=== PATIENT | female | born 1970 | race Caucasian/White ===

== ENCOUNTER → 2018-11-03 | Outpatient (CLI) | payer OTHER ==
[2018-11-04 14:07] LABS: HPV 16 Negative (Negative); HPV 18 Negative (Negative); HPV OTHER HR TYPES Negative (Negative)
== END | disposition home or self-care (01) ==
LOC: LAB 11:53 → LAB SHORT 11:53
PROVIDERS: Nurse Practitioner Women's Health
DX: Z12.4 Encounter for screening for malignant neoplasm of cervix (principal); Z91.89 Other specified personal risk factors, not elsewhere classified
CPT/HCPCS: 87624; G0123

== ENCOUNTER 2020-07-12 08:39 | Observation (INO) | payer OTHER ==
[~2020-07-12] VITALS: Ht 165.1 cm; Wt 60.9 kg
[2020-07-12 09:09] LABS: BASOPHILS ABSOLUTE AUTO 0.08 K/mm3 (0.00-0.23); BASOPHILS PERCENT AUTO 1 % (0-2); EOSINOPHILS ABSOLUTE AUTO 0.22 K/mm3 (0.00-0.68); EOSINOPHILS PERCENT AUTO 2 % (0-6); Hematocrit 41.9 % (33.0-51.0); Hemoglobin 13.9 g/dL (11.5-16.0); IMMATURE GRAN ABSOLUTE AUTO 0.03 K/mm3 (0.00-0.10); IMMATURE GRAN PERCENT AUTO 0 % (0-1); LYMPHOCYTES ABSOLUTE AUTO 1.63 K/mm3 (0.84-5.20); LYMPHOCYTES PERCENT AUTO 14 % (21-46); MONOCYTES ABSOLUTE AUTO 0.92 K/mm3 (0.16-1.47); MONOCYTES PERCENT AUTO 8 % (4-13); Mean Corpuscular HGB 31.1 pg (26.0-34.0); Mean Corpuscular HGB Conc 33.2 g/dL (31.5-36.5); Mean Corpuscular Volume 94 fL (80-100); Mean Platelet Volume 9.4 fL (9.1-12.4); NEUTROPHILS ABSOLUTE AUTO 8.45 K/mm3 (1.96-9.15); NEUTROPHILS PERCENT AUTO 75 % (41-73); Platelet Count 261 K/mm3 (150-400); Red Blood Cell Count 4.47 M/mm3 (3.80-5.20); White Blood Cell Count 11.33 K/mm3 (4.00-11.30)
[2020-07-12 09:31] LABS: Alanine Aminotransfer (ALT/SGP 17 U/L (12-78); Albumin, Blood 3.4 g/dL (3.4-5.0); Albumin/Globulin Ratio 0.8 (0.8-1.8); Alk Phos 38 U/L (50-136); Anion Gap 7 mmol/L (6-16); Aspartate Aminotrans (AST/SGOT 17 U/L (12-37); Bilirubin, Total 0.7 mg/dL (0.1-1.0); Blood Urea Nitrogen 12 mg/dL (8-24); Bun/Creatinine Ratio 16.9 (12.0-20.0); CO2, Blood 28 mmol/L (21-32); Calcium, Blood 8.6 mg/dL (8.5-10.1); Chloride, Blood 103 mmol/L (98-108); Creatinine, Blood 0.71 mg/dL (0.40-1.00); Globulin, Blood 4.1 g/dL (2.2-4.0); Glomerular Filtration Rate >60 (60-); Glucose, Blood 80 mg/dL (70-99); Potassium, Blood 3.7 mmol/L (3.5-5.5); Sodium, Blood 138 mmol/L (136-145); Total Protein, Blood 7.5 g/dL (6.4-8.2)
[2020-07-12 10:33] LABS: Source, Urine Clean Catch
[2020-07-12 10:54] LABS: Bilirubin, Urine Neg (Neg); Blood, Urine 1+ (Neg); Glucose Qualitative, Urine Neg (Neg); Ketones, Urine 4+ (Neg); Leukocyte Esterase, Urine Neg (Neg); Nitrite, Urine Neg (Neg); Protein, Urine Neg (Neg); Urobilinogen, Urine NORM (Normal)
[2020-07-12 11:33] LABS: Appearance, Urine Clear (Clear); Color, Urine Yellow (P-Yellow)
[2020-07-12 11:34] LABS: Bacteria Not Seen /hpf; Red Blood Cells, Urine 0-2 /hpf (0-2); Squamous Epithelial Cells Few /hpf (Few); White Blood Cells, Urine Not Seen /hpf (0-5)
[2020-07-12] MEDS ORDERED: LO LOESTRIN FE PO (11:51)
[2020-07-12 12:13] LABS: Influenza A, PCR NEGATIVE (NEGATIVE); Influenza B, PCR NEGATIVE (NEGATIVE); Resp Syncytial Virus, PCR NEGATIVE (NEGATIVE); SARS-Cov-2 (COVID-19) PCR, MMC NEGATIVE (NEGATIVE)
--- NOTE | 2020-07-12 13:45 | NUR ---
PT TO OR
--- NOTE | 2020-07-12 14:04 | NUR ---
PT TO SDS FROM ROOM 209. PT REPORTS NPO FOR DAYS. SITE PREPPED. LS CLEAR T/O. IV INTACT FROM ED. URINE PREG NEGATIVE.
--- NOTE | 2020-07-12 18:29 | NUR ---
PT ARRIVED BACK TO UNIT FROM PACU TRANSFERRED W/MINIMAL ASSIST TO BED FROM [facility]. DENIES PAIN, N/V OR SOB. HAS "TICKLE" IN THROAT, TAKING ICE CHIPS AND SIPS OF WATER. DERMABOND TO 3 LAP SITES TO ABD CDI. VSS. CALL LIGHT IN REACH. PT DENIES ANY NEEDS AT THIS TIME.
--- NOTE | 2020-07-13 04:15 | NUR ---
POD 1 S/P LAP APPY. PT VSS T/O NIGHT. INCISIONS CDI. PT CHERYL REG PO, NO N/V, REP NO FALTUS YET. PT REP PAIN MINIMAL, MGD W/TORADOL W/REP RELIEF. PT IS VOIDING URINE W/O DIFFICULTY. IV SL PER ORDERS. PT AMB INDEP, CHERYL WELL.
[2020-07-13] MEDS ORDERED: HYDR1TAB94 PO (10:11)
--- NOTE | 2020-07-13 12:49 | NUR ---
DISCHARGE EATING, DRINKING, VOIDING WELL. NOT PASSING GAS AT THIS POINT, AWARE & OK W/ DC. SCRIPT GIVEN. ESCORTED OUT VIA W/C.
== END 2020-07-13 12:00 | disposition home or self-care (01) ==
LOC: ER 08:39 → SURS 08:40
PROVIDERS: Emergency Medicine; ADMIT Surgery
PROC: 0DTJ4ZZ Resection of Appendix, Percutaneous Endoscopic Approach (ICD-10-PCS; principal; 2020-07-12 11:00)
DX: K35.32 Acute appendicitis with perforation, localized peritonitis, and gangrene, without abscess (principal); Z20.822 Contact with and (suspected) exposure to COVID-19
CPT/HCPCS: 0241U; 36415; 74177; 80053; 81001; 83690; 85025; 88304; 96361-59; 96365-59; 96375; 96375-59; 96376; 99285-25; A9270; G0378; J0295; J1100; J1885; J2270; J2405; J2704; J2710; J3010; J7030; Q9967